=== PATIENT | male | born 1980 | race Caucasian/White ===

== ENCOUNTER 2018-07-19 14:36 | Emergency (ER) | payer BC ==
--- NOTE | 2018-07-19 15:34 | RAD REPORT ---
EXAM DESCRIPTION: RAD - Chest Single View - 07/19/2018 3:24 pm CLINICAL HISTORY: Hypertension, dizziness, fatigue, pneumonia COMPARISON: June 2017 TECHNIQUE: AP portable chest image was obtained 1519 hours . FINDINGS: Lungs are clear. No mediastinal or hilar lymphadenopathy identifiable. No remnant of the b ronchopneumonia pattern seen June 2017. Heart and vasculature are normal. No measurable pleural e ffusion and no pneumothorax. No acute bony abnormality seen. No acute aortic findings suspected. IMPRESSION: No acute cardiopulmonary process.
[2018-07-19 15:50] LABS: Absolute Lymphocytes (CBC) 1.7 K/uL (0.7-4.9); Absolute Neutrophil 6.1 K/uL (1.8-8.0); Basophils % 0.8 % (0-1.3); Eosinophils % 0.3 % (0-4.4); Hematocrit 43.4 % (39.6-49.0); Lymphocytes % 19.3 % (15.3-44.8); MPV 8.5 fL (7.6-11.3); Monocytes % 11.1 % (3.3-12.3); RBC Red Blood Cell Count 4.53 M/uL (4.33-5.43)
[2018-07-19 16:10] LABS: ALT/SGPT 37 U/L (12-78); AST/SGOT 24 U/L (15-37); Albumin 4.4 g/dL (3.4-5.0); Alkaline Phosphatase 50 U/L (45-117); BUN Blood Urea Nitrogen 13 mg/dL (7-18); Bicarbonate 31 mmol/L (21-32); Bilirubin Direct 0.2 mg/dL (0-0.2); Bilirubin Total 0.6 mg/dL (0.2-1.0); Glucose Level 99 mg/dL (74-106); Potassium 3.9 mmol/L (3.5-5.1); Protein, Total 7.9 g/dL (6.4-8.2); Sodium Level 137 mmol/L (136-145); Troponin (Emerg Dept Use Only) < 0.02 ng/mL (0.0-0.045)
--- NOTE | 2018-07-19 16:19 | EDPHYS ---
Physician Documentation [facility] Name: Loi Brooks Age: 38 yrs Sex: Male : 1980 Arrival Date: 07/19/2018 Time: 14:39 Bed 15 Private MD: Philip Godwin ED Physician Satya Garcia HPI: 07/19 15:57 This 38 yrs old Male presents to ER via Ambulatory with complaints of High pm1 Blood Pressure, Dizziness. 15:57 The patient has elevated blood pressure and discovered this At work. Onset: The pm1 symptoms/episode began/occurred this morning. Modifying factors: The symptoms are aggravated by Anger, The symptoms are alleviated by nothing. Associated signs and symptoms: Pertinent positives: Jittery sensation, Pertinent negatives: chest pain, dizziness, nausea, vomiting. Severity of symptoms: in the emergency department the blood pressure is are actually worse, Normal range of blood pressure is 130s/90s. At the time he checked it was 180/115. The patient has not experienced similar symptoms in the past. The patient has not recently seen a physician. Patient with onset of jittery sensation and elevated blood pressure after getting in argument with his boss. Historical: - Allergies: 14:54 PENICILLINS; tw2 - PMHx: 14:54 trauma; tw2 - PSHx: 14:54 facial bone sx; tw2 - Immunization history:: Adult Immunizations. - Social history:: Patient uses alcohol, on a daily basis. Smoking status: Patient/guardian denies using tobacco, the patient reports quitting approximately 5 years ago. - Ebola Screening: : Patient denies exposure to infectious person Patient denies travel to an Ebola-affected area in the 21 days before illness onset. ROS: 15:57 Constitutional: Negative for fever, chills, and weight loss, Eyes: Negative for injury, pm1 pain, redness, and discharge, ENT: Negative for injury, pain, and discharge, Neck: Negative for injury, pain, and swelling, Cardiovascular: Negative for chest pain, palpitations, and edema, Respiratory: Negative for shortness of breath, cough, wheezing, and pleuritic chest pain, Abdomen/GI: Negative for abdominal pain, nausea, vomiting, diarrhea, and constipation, Back: Negative for injury and pain, : Negative for injury, bleeding, discharge, and swelling, MS/Extremity: Negative for injury and deformity, Skin: Negative for injury, rash, and discoloration, Neuro: Negative for headache, weakness, numbness, tingling, and seizure. Exam: 15:57 Constitutional: This is a well developed, well nourished patient who is awake, alert, pm1 and in no acute distress. Head/Face: Normocephalic, atraumatic. Eyes: Pupils equal round and reactive to light, extra-ocular motions intact. Lids and lashes normal. Conjunctiva and sclera are non-icteric and not injected. Cornea within normal limits. Periorbital areas with no swelling, redness, or edema. ENT: Nares patent. No nasal discharge, no septal abnormalities noted. Tympanic membranes are normal and external auditory canals are clear. Oropharynx with no redness, swelling, or masses, exudates, or evidence of obstruction, uvula midline. Mucous membranes moist. Neck: Trachea midline, no thyromegaly or masses palpated, and no cervical lymphadenopathy. Supple, full range of motion without nuchal rigidity, or vertebral point tenderness. No Meningismus. Chest/axilla: Normal chest wall appearance and motion. Nontender with no deformity. No lesions are appreciated. Cardiovascular: Regular rate and rhythm with a normal S1 and S2. No gallops, murmurs, or rubs. Normal PMI, no JVD. No pulse deficits. Respiratory: Lungs have equal breath sounds bilaterally, clear to auscultation and percussion. No rales, rhonchi or wheezes noted. No increased work of breathing, no retractions or nasal flaring. Abdomen/GI: Soft, non-tender, with normal bowel sounds. No distension or tympany. No guarding or rebound. No evidence of tenderness throughout. Back: No spinal tenderness. No costovertebral tenderness. Full range of motion. Skin: Warm, dry with normal turgor. Normal color with no rashes, no lesions, and no evidence of cellulitis. MS/ Extremity: Pulses equal, no cyanosis. Neurovascular intact. Full, normal range of motion. 15:57 Neuro: Orientation: is normal, Motor: is normal, moves all fours, Sensation: is normal, no obvious gross deficits. Vital Signs: 14:45 BP 153 / 106; Pulse 112; Resp 20; Temp 98.5(TE); Pulse Ox 98% on R/A; Weight 68.04 kg; ss Height 5 ft. 11 in. (180.34 cm); Pain 0/10; 15:40 BP 133 / 95; Pulse 91; Resp 17; Pulse Ox 100% on R/A; tw2 16:27 BP 130 / 98; Pulse 90; Resp 19; Pulse Ox 100% on R/A; tw2 14:45 Body Mass Index 20.92 (68.04 kg, 180.34 cm) ss MDM: 14:51 Patient medically screened. pm1 16:02 Data reviewed: vital signs. Data interpreted: Pulse oximetry: on room air is 100 %. pm1 Interpretation: normal. 16:02 ED course: Patient calmed down and his blood pressure is back to its baseline, 133/95. pm1 He is currently symptom free, no jittery sensation, and feels ready to go home. 07/19 15:06 Order name: Basic Metabolic Panel; Complete Time: 16:17 pm1 07/19 15:06 Order name: CBC with Diff; Complete Time: 15:57 pm1 07/19 15:06 Order name: LFT's; Complete Time: 16:17 pm1 07/19 15:06 Order name: Troponin (emerg Dept Use Only); Complete Time: 16:17 pm1 07/19 15:06 Order name: XRAY Chest (1 view); Complete Time: 15:41 pm1 07/19 15:06 Order name: EKG; Complete Time: 15:06 pm1 07/19 15:06 Order name: Cardiac monitoring; Complete Time: 15:06 pm1 07/19 15:06 Order name: EKG - Nurse/Tech; Complete Time: 15:06 pm1 07/19 15:06 Order name: IV Saline Lock; Complete Time: 15:14 pm1 07/19 15:06 Order name: Labs collected and sent; Complete Time: 15:14 pm1 Administered Medications: No medications were administered Disposition: 07/20 07:17 Co-signature as Attending Physician, Satya Garcia MD I agree with the assessment and kdr plan of care. Disposition: 07/19/18 16:18 Discharged to Home. Impression: Essential (primary) hypertension. - Condition is Stable. - Discharge Instructions: Hypertension, How to Take Your Blood Pressure, [id number], DASH Eating Plan, Managing Your Hypertension. - Medication Reconciliation Form, Thank You Letter, Antibiotic Education, Prescription Opioid Use, Work release form form. - Follow up: Emergency Department; When: As needed; Reason: Worsening of condition. Follow up: Private Physician; When: 2 - 3 days; Reason: Recheck today's complaints, Continuance of care, Re-evaluation by your physician. - Problem is new. - Symptoms have improved. Signatures: Dispatcher [employer] EDMS Satya Garcia MD MD [facility] Taim Davis RN RN ss Richard Gutierrez NP BOTTOM LIQUOR ATTENDANT pm1 Liz Bright RN RN tw2 Corrections: (The following items were deleted from the chart) 07/19 14:58 14:54 Social history: Smoking status: Patient uses tobacco products, smokes one pack ss cigarettes per day. tw2 16:27 16:18 07/19/2018 16:18 Discharged to Home. Impression: Essential (primary) tw2 hypertension. Condition is Stable. Forms are Work release form, Medication Reconciliation Form, Thank You Letter, Antibiotic Education, Prescription Opioid Use. Follow up: Emergency Department; When: As needed; Reason: Worsening of condition. Follow up: Private Physician; When: 2 - 3 days; Reason: Recheck today's complaints, Continuance of care, Re-evaluation by your physician. Problem is new. Symptoms have improved. pm1
--- NOTE | 2018-07-19 16:19 | ER ---
Nurse's Notes [facility] Name: Loi Brooks Age: 38 yrs Sex: Male : 1980 Arrival Date: 07/19/2018 Time: 14:39 Bed 15 Private MD: Philip Godwin Diagnosis: Essential (primary) hypertension Presentation: 07/19 14:45 Presenting complaint: Patient states: Pt reports he began to feel shaky, flushed and ss fatigued at 1030 this morning. Pt states he took his blood pressure which was 185/115 just prior to arrival. Pt denies having a history of high blood pressure, but reports he is a heavy/ daily drinker and was upset with something that occurred yesterday, and became more upset when he got into an argument with his boss earlier today. 14:45 Transition of care: patient was not received from another setting of care. Onset of ss symptoms was July 19, 2018. Risk Assessment: Do you want to hurt yourself or someone else? Patient reports no desire to harm self or others. Initial Sepsis Screen: Does the patient meet any 2 criteria? HR > 90 bpm. Does the patient have a suspected source of infection? No. Patient's initial sepsis screen is negative. Care prior to arrival: None. 14:45 Method Of Arrival: Ambulatory ss 14:45 Acuity: RJ 3 ss Historical: - Allergies: 14:54 PENICILLINS; tw2 - PMHx: 14:54 trauma; tw2 - PSHx: 14:54 facial bone sx; tw2 - Immunization history:: Adult Immunizations. - Social history:: Patient uses alcohol, on a daily basis. Smoking status: Patient/guardian denies using tobacco, the patient reports quitting approximately 5 years ago. - Ebola Screening: : Patient denies exposure to infectious person Patient denies travel to an Ebola-affected area in the 21 days before illness onset. Screenin:53 Abuse screen: Denies threats or abuse. Nutritional screening: No deficits noted. tw2 Tuberculosis screening: No symptoms or risk factors identified. Fall Risk None identified. Assessment: 15:23 General: Appears in no apparent distress. slender, Behavior is calm, cooperative, tw2 appropriate for age. Pain: Denies pain. Neuro: Reports dizziness. Cardiovascular: Denies chest pain, shortness of breath, Heart tones S1 S2 Patient's skin is warm and dry. Respiratory: Airway is patent Respiratory effort is even, unlabored, Respiratory pattern is regular, symmetrical, Breath sounds are clear bilaterally. GI: No signs and/or symptoms were reported involving the gastrointestinal system. Abdomen is flat, Bowel sounds present X 4 quads. : No signs and/or symptoms were reported regarding the genitourinary system. EENT: No signs and/or symptoms were reported regarding the EENT system. Derm: No signs and/or symptoms reported regarding the dermatologic system. Musculoskeletal: Circulation, motion, and sensation intact. Range of motion: intact in all extremities. 15:40 Reassessment: Patient appears in no apparent distress at this time. No changes from tw2 previously documented assessment. Patient and/or family updated on plan of care and expected duration. Pain level reassessed. Patient is alert, oriented x 3, equal unlabored respirations, skin warm/dry/pink. 15:59 Reassessment: provider at bedside at this time. tw2 16:27 Reassessment: Patient appears in no apparent distress at this time. No changes from tw2 previously documented assessment. Patient and/or family updated on plan of care and expected duration. Pain level reassessed. Patient is alert, oriented x 3, equal unlabored respirations, skin warm/dry/pink. Vital Signs: 14:45 BP 153 / 106; Pulse 112; Resp 20; Temp 98.5(TE); Pulse Ox 98% on R/A; Weight 68.04 kg; ss Height 5 ft. 11 in. (180.34 cm); Pain 0/10; 15:40 BP 133 / 95; Pulse 91; Resp 17; Pulse Ox 100% on R/A; tw2 16:27 BP 130 / 98; Pulse 90; Resp 19; Pulse Ox 100% on R/A; tw2 14:45 Body Mass Index 20.92 (68.04 kg, 180.34 cm) ED Course: 14:39 Patient arrived in ED. dl4 14:39 Philip Godwin MD is Private Physician. dl4 14:45 Arm band placed on right wrist. ss 14:51 Richard Gutierrez NP is PHCP. pm1 14:51 Satya Garcia MD is Attending Physician. pm1 14:52 Liz Bright RN is Primary Nurse. tw2 14:58 Triage completed. 14:59 Bed in low position. Call light in reach. classroom monitor on. Pulse ox on. NIBP on. tw2 15:07 EKG done, by waste minimization technician. reviewed by Satya Garcia MD. at1 15:17 Missed attempt(s): 20 gauge in right forearm. Bleeding controlled, band aid applied, pc1 catheter tip intact. 15:18 Missed attempt(s): 20 gauge in right antecubital area. Bleeding controlled, band aid pc1 applied, catheter tip intact. 15:19 Inserted saline lock: 20 gauge in left antecubital area, using aseptic technique. pc1 15:24 XRAY Chest (1 view) In Process Unspecified. EDMS 16:26 No provider procedures requiring assistance completed. IV discontinued, intact, tw2 bleeding controlled, No redness/swelling at site. Pressure dressing applied. Administered Medications: No medications were administered Outcome: 16:18 Discharge ordered by MD. pm1 16:26 Discharged to home ambulatory. tw2 16:26 Condition: stable 16:26 Discharge instructions given to patient, Instructed on discharge instructions, follow up and referral plans. Demonstrated understanding of instructions, follow-up care. 16:27 Patient left the ED. tw2 Signatures: Dispatcher [employer] EDMS Tami Davis RN RN ss Maria A Orourke, solder cream maker EKG Tat1 Richard Gutierrez, COMPUTER GAME DESIGNER COMPUTER GAME DESIGNER pm1 Liz Bright RN RN tw2 Cj Pascual dl4 Richard Vega pc1 Corrections: (The following items were deleted from the chart) 14:58 14:54 Social history: Smoking status: Patient uses tobacco products, smokes one pack ss cigarettes per day. tw2
--- NOTE | 2018-07-19 17:06 | EKG ---
Test Date: 2018-07-19 Test Time: 15:10:40 Supervisor Anodizing: YANY MEASUREMENT RESULTS: Intervals: Rate: 96 CO: 130 QRSD: 92 QT: 350 QTc: 442 [place]: P: 69 CO: 130 QRS: 80 T: 40 INTERPRETIVE STATEMENTS: Sinus rhythm with occasional premature ventricular complexes Otherwise normal ECG Compared to ECG 11/21/1999 16:48:00 Ventricular premature complex(es) now present Sinus tachycardia no longer present Sinus arrhythmia no longer present Electronically Signed On 07-19-18 17:05:02 CDT by Slim Calle
== END 2018-07-19 16:27 | disposition home or self-care (01) ==
LOC: ER 14:36
DX: I10 Essential (primary) hypertension (principal); R42 Dizziness and giddiness; Z88.0 Allergy status to penicillin
CPT/HCPCS: 36415; 71045; 80048; 80076; 84484; 85025; 93005; 99284